=== PATIENT | male | born 1935 | race Caucasian/White ===

== ENCOUNTER → 2016-05-11 | Outpatient (CLI) | payer OTHER ==
--- NOTE | 2016-05-11 12:43 | US ---
Bilateral Duplex Carotid Sonography Clinical Indications: Left eye, small branch, retinal artery occlusion Technique: The cervical portions of the carotid and vertebral arteries were imaged and interrogated by color and pulsed Doppler. Spectral analysis was performed. Comparison: September 09, 2009 Findings: Right Carotid: The common carotid artery, bifurcation, and origin of the internal and external carot id artery are well imaged. No focal plaque is identified. Doppler velocity estimates and color Doppl er spectra are normal. Peak ICA systolic velocity = 60 cm/sec and diastolic velocity = 17 cm/sec. N o evidence of flow-limiting stenosis. No focal plaque identified. Left Carotid: The common carotid artery, bifurcation, and origin of the internal and external caroti d artery are well imaged. A previously tiny plaque in the left carotid bifurcation is slightly larger currently measuring 4 x 1.5 mm. The plaque is not calcified. It is not irregular or ulcerated. Dopp ler velocity estimates and color Doppler spectra are normal. Peak ICA systolic velocity = 53 cm/sec a nd peak diastolic velocity = 19 cm/sec. No evidence of flow-limiting stenosis. No focal plaque ident ified.. Vertebral Arteries: Antegrade flow is shown by pulsed Doppler of each vertebral artery. Impression: Focal minimal plaque in the left carotid bifurcation has progressed since 2009. No eviden ce of flow-limiting carotid stenosis. Measurement of carotid stenosis is based on velocity parameters that correlate the residual internal carotid diameter with [place] Symptomatic Carotid Endarterectomy Trial (NASCET) based stenosis levels. Results reviewed with the patient.
== END ==
LOC: BMCIMAGING 11:25
PROVIDERS: ATTEND Internal Medicine
DX: R07.9 Chest pain, unspecified (principal); I65.22 Occlusion and stenosis of left carotid artery

== ENCOUNTER → 2017-02-18 | Outpatient (CLI) | payer OTHER | LOC: BMCIMAGING 08:54 | PROVIDERS: ATTEND Internal Medicine | DX: R91.1 Solitary pulmonary nodule (principal) ==

== ENCOUNTER → 2017-02-21 | Outpatient (CLI) | payer OTHER ==
[~2017-02-21] MED LIST: IOPAMIDOL (ISOVUE-300) 100 ML BTL ONE
== END ==
LOC: FIMAGING 11:27
PROVIDERS: ATTEND Internal Medicine
DX: C34.11 Malignant neoplasm of upper lobe, right bronchus or lung (principal); M89.8X8 Other specified disorders of bone, other site; M51.36 Other intervertebral disc degeneration, lumbar region; M46.96 Unspecified inflammatory spondylopathy, lumbar region; N28.1 Cyst of kidney, acquired
CPT/HCPCS: 71260; 74177; Q9967

== ENCOUNTER 2017-02-26 06:51 | Day surgery (SDC) | payer OTHER ==
[2017-02-26 07:41] VITALS: PULSE 64; RESP 18; TEMP 97.9
[2017-02-26] MEDS ORDERED: NALOXONE HCL 0.4 MG/ML INJ ONE (08:12)
[2017-02-26] MEDS ORDERED: fentaNYL 100 MCG/2 ML INJ ONE (08:13)
[2017-02-26] MEDS ORDERED: FLUMAZENIL 0.5 MG/5 ML MDV IVP ONE (08:13)
[2017-02-26] MEDS ORDERED: MIDAZOLAM 2 MG/2 ML VIAL ONE (08:13)
--- NOTE | 2017-02-26 08:51 | PDPROPOC ---
Sedation Plan of Care Sedation Plan of Care: vital signs stable, mental status noted, patient educated of risks, benefits, alternatives, patient can tolerate sedation ASA Classification: ASA 2 Planned drugs: fentanyl, midazolam Mallampati Score: Class 1 Mallampati Reference Image: Patient passed 3-3-2 rule?: Yes
--- NOTE | 2017-02-26 08:54 | PDGENHP ---
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 Stopped plavix 5 days ago. Relevant Physical Exam: Lungs clear to auscultation. Heart RRR no murmur, 76 bpm Cardiorespiratory Assessment: see above
[2017-02-26] MEDS ORDERED: fentaNYL 100 MCG/2 ML INJ IVP PRN (09:06)
[2017-02-26] MEDS ORDERED: ALTEPLASE 2 MG VIAL IVP PRN (09:06)
[2017-02-26] MEDS ORDERED: MEPERIDINE 25 MG/ML SYR IVP PRN (09:06)
[2017-02-26] MEDS ORDERED: FLUMAZENIL 0.5 MG/5 ML MDV IVP PRN (09:06)
[2017-02-26] MEDS ORDERED: GLUCAGON HCL 1 MG VIAL IVP PRN (09:06)
[2017-02-26] MEDS ORDERED: PROTAMINE SULFATE 50 MG/5 ML VIAL IVP PRN (09:06)
[2017-02-26] MEDS ORDERED: MIDAZOLAM 2 MG/2 ML VIAL IVP PRN (09:06)
[2017-02-26] MEDS ORDERED: HEPARIN 10,000 UNIT/10 ML MDV IVP PRN (09:06)
[2017-02-26] MEDS ORDERED: NALOXONE HCL 0.4 MG/ML INJ IVP PRN (09:06)
[2017-02-26] MEDS ORDERED: NS 1,000 ML IV SCH (09:15)
--- NOTE | 2017-02-26 10:16 | PDRADPN ---
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 CXR pending. Inf/Abcess present in the surg proc area at time of surgery?: No EBL: Minimal Complications: 0 Specimen(s): 22 ga FNA X 2: cytology and cultures. 20 ga core biopsy X 6: one for cultures, others for histology.
[2017-02-26] MEDS ORDERED: ONDANSETRON 4 MG/2 ML VIAL IVP PRN (10:17)
[2017-02-26 11:20] VITALS: BP 124/76; O2SAT 93
== END 2017-02-26 12:20 | disposition home or self-care (01) ==
LOC: FIMAGING 06:51
PROVIDERS: ATTEND Internal Medicine
PROC: 0BBC3ZX Excision of Right Upper Lung Lobe, Percutaneous Approach, Diagnostic (ICD-10-PCS; principal; 2017-02-26 10:42)
DX: C34.11 Malignant neoplasm of upper lobe, right bronchus or lung (principal)
CPT/HCPCS: J2250; J2310; J3010

== ENCOUNTER → 2017-02-27 | Outpatient (CLI) | payer OTHER | LOC: BMCIMAGING 10:31 | PROVIDERS: ATTEND Radiology Diagnostic Radiology | DX: J93.83 Other pneumothorax (principal) ==

== ENCOUNTER → 2017-09-04 | Outpatient (CLI) | payer OTHER | LOC: FIMAGING 15:05 | PROVIDERS: ATTEND Internal Medicine Hematology & Oncology | DX: Z08 Encounter for follow-up examination after completed treatment for malignant neoplasm (principal); C34.11 Malignant neoplasm of upper lobe, right bronchus or lung; R91.8 Other nonspecific abnormal finding of lung field | CPT/HCPCS: Q9967 ==

== ENCOUNTER → 2017-12-17 | Outpatient (CLI) | payer OTHER | LOC: FIMAGING 14:43 | PROVIDERS: ATTEND Internal Medicine Hematology & Oncology | DX: C34.11 Malignant neoplasm of upper lobe, right bronchus or lung (principal) ==

== ENCOUNTER → 2018-03-25 | Outpatient (CLI) | payer OTHER | LOC: FIMAGING 13:57 | PROVIDERS: ATTEND Internal Medicine Hematology & Oncology | DX: C34.11 Malignant neoplasm of upper lobe, right bronchus or lung (principal); C78.2 Secondary malignant neoplasm of pleura ==

== ENCOUNTER → 2018-05-05 | Outpatient (CLI) | payer OTHER | LOC: BMCIMAGING 13:58 | PROVIDERS: ATTEND Internal Medicine | DX: R05 Cough (principal); C34.11 Malignant neoplasm of upper lobe, right bronchus or lung; C79.51 Secondary malignant neoplasm of bone ==

== ENCOUNTER → 2018-07-08 | Outpatient (CLI) | payer OTHER | LOC: FIMAGING 14:46 | PROVIDERS: ATTEND Internal Medicine Hematology & Oncology | DX: C34.11 Malignant neoplasm of upper lobe, right bronchus or lung (principal); C78.2 Secondary malignant neoplasm of pleura ==

== ENCOUNTER → 2018-08-25 | Outpatient (CLI) | payer OTHER | LOC: BMCIMAGING 11:41 | PROVIDERS: ATTEND Internal Medicine Hematology & Oncology | DX: C34.11 Malignant neoplasm of upper lobe, right bronchus or lung (principal); J90 Pleural effusion, not elsewhere classified; Z95.0 Presence of cardiac pacemaker ==

== ENCOUNTER → 2018-09-03 | Outpatient (CLI) | payer OTHER | LOC: FIMAGING 15:13 ==

== ENCOUNTER → 2018-09-17 | Outpatient (CLI) | payer OTHER | LOC: FIMAGING 12:05 ==

== ENCOUNTER → 2018-09-26 | Outpatient (CLI) | payer OTHER | LOC: BMCIMAGING 15:49 ==